=== PATIENT | female | born 1975 | race Caucasian/White ===

== ENCOUNTER 2020-01-05 12:22 | Emergency (ER) | payer OTHER ==
[~2020-01-05] VITALS: Ht 167.6 cm; Wt 144.7 kg
--- NOTE | 2020-01-05 16:43 | EKG ---
[facility] [place] [address] ELECTROCARDIOGRAM REPORT Name: JOELLE SAUNDERS Quan Room #: REG [facility]#: [id number] Admission: 01/05/20 Attend Phys: Discharge: Date of : 79 Report #: [id number] THIS REPORT FOR: cc: FAM - Family physician unknown FAM - Family physician unknown Burton Beard MD [facility] ~ THIS REPORT FOR: //name// [facility] ED Test Date: 2020-01-05 Test Time: 13:12:06 Pat Name: JOELLE SAUNDERS Department: Room: Gender: F Senior Instrumentation Engineer: PRASHANT : 1975 Requested By: Hieu Perla Order Number: [id number] MD: Burton Beard Measurements Intervals [place] Rate: 69 P: 15 MO: 175 QRS: -7 QRSD: 87 T: 29 QT: 420 QTc: 450 Interpretive Statements Sinus rhythm Probable left atrial enlargement Probable Inferior infarct, old No previous ECG available for comparison Electronically Signed On 01-05-2020 16:42:51 CLINICAL APPEALS AUDITOR by Burton Beard [email or web address] <ELECTRONICALLY SIGNED> By: Burton Beard MD, FACC 01/05/20 1642 1312 11 Burton Beard MD, FACC /EPI
[2020-01-05 18:50] VITALS: BP 112/56
== END 2020-01-05 18:50 | disposition home or self-care (01) ==
LOC: ER 12:22
DX: S09.90XA Unspecified injury of head, initial encounter (principal); I10 Essential (primary) hypertension; G43.909 Migraine, unspecified, not intractable, without status migrainosus; Z88.6 Allergy status to analgesic agent; Z88.1 Allergy status to other antibiotic agents; Z91.048 Other nonmedicinal substance allergy status; W22.8XXA Striking against or struck by other objects, initial encounter; Y93.89 Activity, other specified; Y92.89 Other specified places as the place of occurrence of the external cause; Y99.8 Other external cause status